=== PATIENT | male | born 1980 | race African-American/Black ===

== ENCOUNTER 2016-07-28 01:23 | Emergency (ER) | payer OTHER ==
[~2016-07-28 01:23] MED LIST: FLOMAX0.4 MG PO; MEDROL PO; PHENERGAN PR; VICODIN 5/1 TAB 5/50 PO; VICODIN 5/500 T1 TAB PO
== END 2016-07-28 03:15 | disposition left against medical advice (07) ==
LOC: CED 01:23
DX: Z53.21 Procedure and treatment not carried out due to patient leaving prior to being seen by health care provider (principal)